=== PATIENT | female | born 1945 | race Two or more races ===

== ENCOUNTER 2019-09-18 14:38 | Emergency (ER) | payer SELFPAY ==
[~2019-09-18] VITALS: Ht 157.5 cm; Wt 59.9 kg
[2019-09-18 14:39] VITALS: BP 156/85
== END 2019-09-18 15:12 | disposition home or self-care (01) ==
LOC: ER 14:40
DX: J40 Bronchitis, not specified as acute or chronic (principal); R68.89 Other general symptoms and signs; I10 Essential (primary) hypertension; Z85.3 Personal history of malignant neoplasm of breast